=== PATIENT | female | born 1990 | race Caucasian/White ===

== ENCOUNTER → 2017-04-28 18:10 | Emergency (ER) | payer OTHER | END | disposition left against medical advice (07) | LOC: ED 18:10 | DX: R10.9 Unspecified abdominal pain (principal); Z53.21 Procedure and treatment not carried out due to patient leaving prior to being seen by health care provider ==

== ENCOUNTER 2018-12-22 19:24 | Emergency (ER) | payer OTHER ==
[2018-12-22 22:15] LABS: ABS Basophils 0.1 10^3/ul (0-0.2); ABS Eosinophils 0.4 10^3/ul (0-0.6); ABS Lymphocytes 1.8 10^3/ul (1.0-4.8); ABS Monocytes 0.6 10^3/ul (0-0.8); Eosinophil % 4.5 %; Hematocrit 40 % (35-47); Hemoglobin 13.4 g/dL (12.0-16.0); Lymphocyte % 23.4 %; Mean Corpuscular HGB Conc 34 g/dL (31-36); Mean Corpuscular Hemoglobin 30 pg (27-31); Mean Corpuscular Volume 89 fL (80-97); Mean Platelet Volume 7.4 fL (7.4-10.4); Platelet Count 326 10^3/uL (150-450); Red Blood Count 4.45 10^6 /uL (3.70-4.87); Red Cell Distribution Width 13 % (10-15); White Blood Count 7.9 10^3/uL (3.5-10.8)
[2018-12-22 22:24] LABS: Activated Partial Thrombo Time 34.9 seconds (26.0-38.0); INR 1.09 (0.82-1.09)
[2018-12-22 22:31] LABS: Albumin 4.7 g/dL (3.2-5.2); Albumin/Globulin Ratio 1.3 (1-3); BUN/Creatinine Ratio 16.4 (8-20); Calcium 9.7 mg/dL (8.6-10.3); EGFR African American 113.3 (>60); EGFR Non-African American 93.6 (>60); Globulin 3.5 g/dL (2-4); Potassium 3.3 mmol/L (3.5-5.0); Total Bilirubin 0.4 mg/dL (0.2-1.0); Total Protein 8.2 g/dL (6.4-8.9)
--- NOTE | 2018-12-23 00:04 | ED ---
Skin Complaint - HPI Summary HPI Summary: This pt is a 28 Y/O F presenting to [facility] with a CC of a skin abscess that is raised and pruritus on her R hand that has been present since 12/15/18. She states that she has seen her PCP and was prescribed clindamycin and keflex with no effect. She states that she has had her abscess drained at urgent care without effect. She states that she has been soaking her had without effect. There is associated pain that is rated a 5/10 in severity. She denies any fevers , chills, N/V, SOB, CP, headaches, and decrease in ROM. She has no pertinent PMHx. - History of Current Complaint Chief Complaint: EDRashSkinAbscess Time Seen by Provider: 12/22/18 23:52 Stated Complaint: INFECTION ON FINGER PER PT Hx Obtained From: Patient Onset/Duration: Started Days Ago - 7, Still Present Skin Exposure Onset/Duration: Days Ago - 7 Timing: Constant Onset Severity: Moderate Current Severity: Moderate Pain Intensity: 5 Pain Scale Used: 0-10 Numeric Skin Location: Hand - right Character: Pruritus, Raised Aggravating Symptom(s): Nothing Alleviating Symptom(s): Nothing Associated Signs & Symptoms: Negative - fevers, chills, N/V, SOB, CP, headaches , and decrease in ROM. - Allergy/Home Medications Allergies/Adverse Reactions: Allergies Allergy/AdvReac Type Severity Reaction Status Date / Time No Known Allergies Allergy Verified 12/22/18 23:53 PMH/Surg Hx/FS Hx/Imm Hx Previously Healthy: Yes Endocrine/Hematology History: Reports: Other Endocrine/Hematological Disorders - Pituitary tumor, vogtkoyanagi aurora syndrome Denies: Hx Diabetes Cardiovascular History: Denies: Hx Congestive Heart Failure, Hx Hypertension History: Denies: Hx Renal Disease Infectious Disease History: No Infectious Disease History: Denies: Traveled Outside the [place] in Last 30 Days - Family History Known Family History: Positive: Hypertension - paternal Negative: Cardiac Disease - Social History Occupation: Employed Full-time Lives: Alone Alcohol Use: Occasionally Hx Substance Use: No Substance Use Type: Reports: None Hx Tobacco Use: No Smoking Status (MU): Never Smoked Tobacco Review of Systems Negative: Fever, Chills Negative: Chest Pain Negative: Shortness Of Breath Negative: Vomiting, Nausea Negative: Decreased ROM Skin: Other - abscess on her R hand Negative: Headache All Other Systems Reviewed And Are Negative: Yes Physical Exam - Summary Physical Exam Summary: Appearance: Well-appearing, Well-nourished, lying in bed comfortably Skin: Warm, dry, no obvious rash. Paronychia above the R fourth finger Eyes: sclera anicteric, no conjunctival pallor ENT: mucous membranes moist, pharynx appears normal Neck: Supple, nontender Respiratory: Clear to auscultation, no signs of respiratory distress Cardiovascular: Normal S1, S2. No murmurs. Normal distal pulses in tibial and radial bilaterally. Abdomen: Soft, nontender, normal active bowel sounds present Musculoskeletal: Normal, Strength/ROM Intact Neurological: A&Ox3, awake and alert, mentation is normal, speech is fluent and appropriate Psychiatric: affect is normal, does not appear anxious or depressed Triage Information Reviewed: Yes Vital Signs On Initial Exam: Initial Vitals Temp Pulse Resp BP Pulse Ox 97.5 F 78 16 105/86 100 12/22/18 19:42 12/22/18 19:42 12/22/18 19:42 12/22/18 19:42 12/22/18 19:42 Vital Signs Reviewed: Yes Procedures - Sedation Patient Received Moderate/Deep Sedation with Procedure: No - Incision and Drainage Right Hand Site: R fourth finger Anesthesia: Topical, Lidocaine - .5 Instrument(s): Other - iris scissors were used to unroof the skin over the nail , with drainage of a small amount of pus. An small perhaps 3 mm incision was made at the skin edge to promote further drainage. Packing: Gauze Diagnostics - Vital Signs Vital Signs Temp Pulse Resp BP Pulse Ox 12/22/18 23:30 97 F 68 18 136/75 99 12/22/18 21:30 98.7 F 72 18 109/65 100 12/22/18 19:42 97.5 F 78 16 105/86 100 - Laboratory Lab Results: Lab Results 12/22/18 12/22/18 12/22/18 Range/Units 22:00 22:00 22:00 WBC 7.9 (3.5-10.8) 10^3/uL RBC 4.45 (3.70-4.87) 10^6 /uL Hgb 13.4 (12.0-16.0) g/dL Hct 40 (35-47) % MCV 89 (80-97) fL MCH 30 (27-31) pg MCHC 34 (31-36) g/dL RDW 13 (10-15) % Plt Count 326 (150-450) 10^3/uL MPV 7.4 (7.4-10.4) fL Neut % (Auto) 63.7 % Lymph % (Auto) 23.4 % Arroyo % (Auto) 7.5 % Eos % (Auto) 4.5 % Baso % (Auto) 0.9 % Absolute Neuts (auto) 5.0 (1.5-7.7) 10^3/ul Absolute Lymphs (auto) 1.8 (1.0-4.8) 10^3/ul Absolute Monos (auto) 0.6 (0-0.8) 10^3/ul Absolute Eos (auto) 0.4 (0-0.6) 10^3/ul Absolute Basos (auto) 0.1 (0-0.2) 10^3/ul Absolute Nucleated RBC 0.0 10^3/ul Nucleated RBC % 0.0 INR (Anticoag Therapy) 1.09 (0.82-1.09) APTT 34.9 (26.0-38.0) seconds Sodium 135 (135-145) mmol/L Potassium 3.3 L (3.5-5.0) mmol/L Chloride 102 (101-111) mmol/L Carbon Dioxide 25 (22-32) mmol/L Anion Gap 8 (2-11) mmol/L BUN 12 (6-24) mg/dL Creatinine 0.73 (0.51-0.95) mg/dL Est GFR ( Amer) 113.3 (>60) Est GFR (Non-Af Amer) 93.6 (>60) BUN/Creatinine Ratio 16.4 (8-20) Glucose 96 (70-100) mg/dL Lactic Acid (0.5-2.0) mmol/L Calcium 9.7 (8.6-10.3) mg/dL Total Bilirubin 0.40 (0.2-1.0) mg/dL AST 16 (13-39) U/L ALT 11 (7-52) U/L Alkaline Phosphatase 78 (34-104) U/L Troponin I 0.00 (<0.04) ng/mL Total Protein 8.2 (6.4-8.9) g/dL Albumin 4.7 (3.2-5.2) g/dL Globulin 3.5 (2-4) g/dL Albumin/Globulin Ratio 1.3 (1-3) 12/22/18 Range/Units 22:00 WBC (3.5-10.8) 10^3/uL RBC (3.70-4.87) 10^6 /uL Hgb (12.0-16.0) g/dL Hct (35-47) % MCV (80-97) fL MCH (27-31) pg MCHC (31-36) g/dL RDW (10-15) % Plt Count (150-450) 10^3/uL MPV (7.4-10.4) fL Neut % (Auto) % Lymph % (Auto) % Arroyo % (Auto) % Eos % (Auto) % Baso % (Auto) % Absolute Neuts (auto) (1.5-7.7) 10^3/ul Absolute Lymphs (auto) (1.0-4.8) 10^3/ul Absolute Monos (auto) (0-0.8) 10^3/ul Absolute Eos (auto) (0-0.6) 10^3/ul Absolute Basos (auto) (0-0.2) 10^3/ul Absolute Nucleated RBC 10^3/ul Nucleated RBC % INR (Anticoag Therapy) (0.82-1.09) APTT (26.0-38.0) seconds Sodium (135-145) mmol/L Potassium (3.5-5.0) mmol/L Chloride (101-111) mmol/L Carbon Dioxide (22-32) mmol/L Anion Gap (2-11) mmol/L BUN (6-24) mg/dL Creatinine (0.51-0.95) mg/dL Est GFR ( Amer) (>60) Est GFR (Non-Af Amer) (>60) BUN/Creatinine Ratio (8-20) Glucose (70-100) mg/dL Lactic Acid 0.5 (0.5-2.0) mmol/L Calcium (8.6-10.3) mg/dL Total Bilirubin (0.2-1.0) mg/dL AST (13-39) U/L ALT (7-52) U/L Alkaline Phosphatase (34-104) U/L Troponin I (<0.04) ng/mL Total Protein (6.4-8.9) g/dL Albumin (3.2-5.2) g/dL Globulin (2-4) g/dL Albumin/Globulin Ratio (1-3) Result Diagrams: 12/22/18 22:00 12/22/18 22:00 Lab Statement: Any lab studies that have been ordered have been reviewed, and results considered in the medical decision making process. Course/Dx - Course Course Of Treatment: This pt is a 28 Y/O F presenting to [facility] with a CC of a skin abscess on her R hand that has been present since 12/15/18. She states that she has seen her PCP and was prescribed clindamycin and keflex with no effect. She states that she has had her abscess drained at urgent care without effect. Her PE found that she had a paronychia above her R fourth finger. She received a drainage using an iris to de-roof the paronychia where there was a small drainage of pus. A small cut was then made overlying the R fourth finger. She has no abnormalities in her labratory results. She will be discharged home with a Dx of a paronychia. - Diagnoses Provider Diagnoses: Paronychia Discharge ED - Sign-Out/Discharge Documenting (check all that apply): Patient Departure - discharge - Discharge Plan Condition: Good Disposition: HOME Patient Education Materials: Paronychia (ED) Referrals: [facility] - Farrukh BENNETT [Primary Care Provider] - If Needed Additional Instructions: Keep up the antibiotics and warm soaks (3-4 times daily) through the weekend. If it looks a lot better come Tuesday, you can stop the antibiotics. - Billing Disposition and Condition Condition: GOOD Disposition: Home - Attestation Statements Document Initiated by Scribe: Yes Documenting Scribe: Liang Rojo Provider For Whom Destinee is Documenting (Include Credential): Hussein Mancia MD Scribe Attestation: Liang Zee, scribed for Hussein Mancia MD on 12/23/18 at 2116. Scribe Documentation Reviewed: Yes Provider Attestation: The documentation as recorded by the Liang rojas accurately reflects the service I personally performed and the decisions made by me, Hussein Mancia MD Status of Scribe Document: Viewed
[2018-12-23 00:44] VITALS: BP 113/67
[2018-12-23] MEDS ORDERED: Bupivacaine 0.5% PF 10 ML SDV VIAL INJ ONE (01:00)
== END 2018-12-23 00:43 | disposition home or self-care (01) ==
LOC: ED 19:24
DX: L03.011 Cellulitis of right finger (principal)
CPT/HCPCS: 10060; 36415; 80053; 83605; 84484; 85025; 85610; 85730; 87040; 99282; J3490